=== PATIENT | male | born 1940 | race Caucasian/White ===

== ENCOUNTER → 2017-01-12 | Outpatient (CLI) | payer MEDICARE, BC ==
[~2017-01-12] MED LIST: AGGRENOX (D1 CAPSULE PO; ALEVE220 MG PO; AMLODIPINE10 M2 PO; AMLODIPINE10 MG PO; ASPIRIN EC81 MG PO; ATORVASTATIN 4040 MG PO; BYETTA250 MCG/ML SC; CENTRUM SILVER1 TA2 PO; DITROPAN5 MG PO; ELIQUIS5 MG PO; ERY PO; FLOMAX0.4 MG PO; GLUCOPHAGE1000 MG PO; GLYBURIDE5 MG PO; HUMALOG100 U/M1 SC; HUMALOG100 U/ML SC; INSULIN GL100 UNITS/ SC; KEFLEX500 M1 PO; LANTUS INS100 UNITS/ SC; LEVEMIR100 U/M1 SC; LEVEMIR100 UNITS/ SC; LISINOPRIL10 MG PO; LOSARTAN POTAS100 MG PO; METAMUCIL(SF)1 EACH PO; METAMUCIL0.52 G1 PO; METAMUCIL660 GM PO; METOPROLOL SUCC25 M1 PO; MIRALAX17 GM PO; MIRALAX17 GM/DOSE PO; MIRALAX17 GM/PACK PO; NAPROXEN SODIU500 MG PO; NATURE'S BLEN5000 IU PO; NEURONTIN 300M300 MG PO; OCUVITE ADULT 51 SGL PO; PANTOPRAZOLE SO40 MG PO; PLAVIX75 MG PO; PRILOSEC20 M1 PO; PSYLLIUM HUSK1 CAP PO; Prilosec20 MG PO; TAMSULOSIN HYD0.4 MG PO; TIZANIDINE2 MG PO; TYLENOL 325MG325 MG PO; [UNRECOGNIZED DRUG - OTHER]; [UNRECOGNIZED DRUG - OTHER] OR; [UNRECOGNIZED DRUG - OTHER] PO
--- NOTE | 2017-01-12 09:25 | RADIOLOGY REPORT PS360 ---
ARTERIAL/[id number] CLAUDICATION ORDERING PHYSICIAN: BOLIVAR SPEARS PATIENT AGE: 76 years TECHNIQUE: Segmental pressures obtained of both right and left leg. These are compared to brachial blood pressure to yield index at each level sampled including summary LAURA. The data sheets from the procedure are available in PACS FINDINGS Rest study only performed today No prior studies available for comparison. Blood pressures reported are in millimeters mercury. RIGHT LEG LAURA = 1.1. Brachial BP: 175 Thigh BP: 170 Calf BP: 170 Ankle PT: 160 Ankle DP : 200 Digit =136 LEFT LEG LAURA = 1.1 Brachial BPD: 182 Thigh BP: 188 Calf BP: 179 Ankle PT:165 Ankle DP: 191 Digit = 130 Pulses and waveforms: Normal IMPRESSION: The ABIs as reported above are within normal limits. Waveforms and pulses are also unremarkable.
== END ==
LOC: RT 01-06 11:00
DX: I70.213 Atherosclerosis of native arteries of extremities with intermittent claudication, bilateral legs (principal); E11.9 Type 2 diabetes mellitus without complications